=== PATIENT | male | born 1985 | race Asian ===

== ENCOUNTER → 2018-08-26 | Outpatient (CLI) | payer OTHER | LOC: EMCIMAGING 09:41 | PROVIDERS: ATTEND Orthopaedic Surgery Hand Surgery | DX: S42.252A Displaced fracture of greater tuberosity of left humerus, initial encounter for closed fracture (principal); S43.492A Other sprain of left shoulder joint, initial encounter; S46.812A Strain of other muscles, fascia and tendons at shoulder and upper arm level, left arm, initial encounter; M75.52 Bursitis of left shoulder; M75.22 Bicipital tendinitis, left shoulder | CPT/HCPCS: 73200-PN; 73221-PN ==